=== PATIENT | male | born 1995 | race American Indian/Alaskan Native ===

== ENCOUNTER 2020-11-03 18:15 | Emergency (ER) | payer SELFPAY ==
[2020-11-03 18:55] VITALS: BP 148/81
--- NOTE | 2020-11-03 19:00 | Emergency Department Report ---
- General Chief Complaint: Upper Respiratory Infection Stated Complaint: COVID SX PUI?: Yes Time Seen by Provider: 11/03/20 18:55 Source: patient Mode of arrival: Ambulatory Limitations: No Limitations - History of Present Illness Initial Comments: The patient was evaluated in the emergency department for symptoms described in the history of present illness. He/she was evaluated in the context of the global COVID-19 pandemic, which necessitated consideration that the patient might be at risk for infection with the virus that causes COVID-19. Institut ional protocols and algorithms that pertain to the evaluation of patients at risk for COVID-19 are in a state of rapid change based on information released by regulatory bodies including the CDC and federal and state organizations. These policies and algorithms were followed during the patient's care in the emergency department. Please note that these policies, procedures and recommendations changed on a rapid basis. 25-year-old -[place] male presents to the emergency room complaining of a fever body aches Covid-like symptoms x1 week. Patient is unvaccinated. Patient reports he tested positive for Covid last . He states that he has been running a fever. He reports having taken [id number] Tylenol Cold and flu. He currently has relocated from [place]. He denies any past medical history takes no meds on a daily basis. 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 Complaint: fever, nasal congestion, other (Body aches) - Related Data Allergies Allergy/AdvReac Type Severity Reaction Status Date / Time No Known Allergies Allergy Verified 11/03/20 18:55 ED Review of Systems ROS: Stated complaint: COVID SX Other details as noted in HPI ED Past Medical Hx - Past Medical History Previous Medical History?: No - Surgical History Past Surgical History?: No - Social History Smoking Status: Never Smoker ED Physical Exam - General Limitations: No Limitations General appearance: alert, in no apparent distress - Head Head exam: Present: atraumatic, normocephalic - Eye Eye exam: Present: normal appearance - ENT ENT exam: Present: mucous membranes moist - Neck Neck exam: Present: normal inspection - Respiratory Respiratory exam: Present: normal lung sounds bilaterally. Absent: respiratory distress - Cardiovascular Cardiovascular Exam: Present: regular rate, normal rhythm, normal heart sounds. Absent: systolic murmur, diastolic murmur, rubs, gallop - GI/Abdominal GI/Abdominal exam: Present: soft, normal bowel sounds - Rectal Rectal exam: Present: deferred - Extremities Exam Extremities exam: Present: normal inspection - Back Exam Back exam: Present: normal inspection - Neurological Exam Neurological exam: Present: alert, oriented X3 - Psychiatric Psychiatric exam: Present: normal affect, normal mood - Skin Skin exam: Present: warm, dry, intact, normal color. Absent: rash ED Course Vital Signs 11/03/20 18:51 Temperature 101.0 F H Pulse Rate 98 H Respiratory 18 Rate Blood Pressure 148/81 O2 Sat by Pulse 100 Oximetry ED Medical Decision Making - Medical Decision Making 25-year-old -[place] male presents to the emergency room complaining of a fever body aches Covid-like symptoms x1 week. Patient is unvaccinated. Patient reports he tested positive for Covid last . He states that he has been running a fever. He reports having taken [id number] Tylenol Cold and flu. He currently has relocated from [place]. He denies any past medical history takes no meds on a daily basis. Discussed with patient needs to increase his fluid intake Tylenol or ibuprofen for fever and body aches. Get retested for Covid on Sunday. Return to the emergency room with any chest pain shortness of breath. Critical care attestation.: If time is entered above; I have spent that time in minutes in the direct care of this critically ill patient, excluding procedure time. ED Disposition Clinical Impression: COVID Disposition: HOME / SELF CARE / HOMELESS Is pt being admited?: No Does the pt Need Aspirin: No Condition: Stable Instructions: COVID-19 Frequently Asked Questions, COVID-19: How to Protect Yourself and Others - CDC, Prevent the Spread of COVID-19 if You Are Sick - CDC Additional Instructions: Your symptoms appear most consistent with a nonspecific viral syndrome. However, given this current pandemic, COVID-19 is in the differential of possibilities. I do recommend repeat outpatient Covid 19 testing. In the meantime, isolate/quarantine yourself and stay away from anyone who is elderly, immunocompromised or chronically ill. You can use ibuprofen every 6-8 hours and Tylenol every 4-8 hours, using the dosing on the back of the bottle, as needed for any fever or body aches. Return to the emergency department with any worsening of your symptoms, development of chest pain or shortness of breath, or with any acute distress. Recommend [id number] vitamin C vitamin D3 and zinc. Referrals: JOSE LOCKHART MD [Staff Physician] - 3-5 Days Time of Disposition: 19:00
== END 2020-11-03 19:50 | disposition home or self-care (01) ==
LOC: ED 18:15
DX: U07.1 COVID-19 (principal)
CPT/HCPCS: 99282